=== PATIENT | male | born 1930 | race Caucasian/White ===

== ENCOUNTER 2018-09-12 14:27 | Inpatient (IN) ==
--- NOTE | 2018-09-12 15:06 | Diag Imaging Result Doc PS360 ---
CT HEAD W/O CONTRAST - 09/12/2018 INDICATION: STROKE LIKE SYMPTOMS COMPARISON: None FINDINGS: There is an ill-defined hypodensity in the subinsular white matter of the right basal ganglia. There is mild diffuse cerebral atrophy. No intracranial mass or hemorrhage. No other significant microvascular disease. The skull is intact. The sinuses, mastoids, and middle ears are clear. IMPRESSION: Age-indeterminate ischemia in the right basal ganglia white matter. An MRI of the brain might be beneficial. This exam was performed using automated exposure control, adjustment of mA or kV according to patient size, and/or use of iterative reconstruction technique Electronically signed by Manish Keating 09/12/2018 3:04 PM
--- NOTE | 2018-09-12 15:07 | Diag Imaging Result Doc PS360 ---
CHEST-PORTABLE - 09/12/2018 INDICATION: stroke like symptoms COMPARISON: 03/26/2018 FINDINGS: The lungs are normally expanded and clear. Heart size and mediastinal contours are normal. No pneumothorax or pleural effusion. IMPRESSION: Negative exam. Electronically signed by Manish Keating 09/12/2018 3:05 PM
[2018-09-12 15:30] LABS: URINE SOURCE CATH
[2018-09-12 15:32] LABS: INR 1.02; PROTIME 14.3 Seconds (11.0-16.0)
[2018-09-12 15:37] LABS: PTT 29.9 Seconds (22.3-41.8)
[2018-09-12 15:37] LABS: BILIRUBIN URINE NEGATIVE (NEGATIVE); BLOOD URINE NEGATIVE (NEGATIVE); COLOR YELLOW; GLUCOSE URINE NEGATIVE (NEGATIVE); KETONE URINE NEGATIVE (NEGATIVE); LEUKOCYTES URINE NEGATIVE (NEGATIVE); NITRITE URINE NEGATIVE (NEGATIVE); PROTEIN URINE NEGATIVE (NEGATIVE); SP GRAVITY URINE 1.002; TURBIDITY URINE CLEAR (CLEAR); UROBILINOGEN URINE NORMAL (NORMAL)
[2018-09-12 15:38] LABS: BASO# 0.24 X1000 (0.0-0.2); BASO% 2.5 % (0.0-0.8); EOS# 0.07 X1000 (0.0-0.7); EOS% 0.7 % (0.0-10.0); HEMATOCRIT 39.4 % (42.0-52.0); HEMOGLOBIN 12.9 g/dL (14.0-18.0); IMM GRAN# 0.02 X1000 (0.0-0.04); IMM GRAN% 0.2 % (0.0-0.5); LYMPH% 24.2 % (20.5-51.1); MCH 32.4 PG (27-31); MCHC 32.7 g/dL (33-37); MONO# 0.77 X1000 (0.11-0.59); MONO% 8.1 % (1.7-9.3); MPV 10.5 FL (7.4-10.4); NEUT# 6.09 X1000 (1.4-6.5); NEUT% 64.3 % (42.2-75.2); PLT 306 X1000 (130-400); RBC 3.98 XMIL (4.7-6.1); RDW 15.2 % (11.5-14.5); WBC 9.49 X1000 (4.8-10.8)
[2018-09-12 15:38] LABS: UR EPITHELIAL CELLS <10 /HPF (<10); URINE BACTERIA NEGATIVE /HPF; URINE RBC <10 /HPF (<10); URINE WBC <10 /HPF (<10)
[2018-09-12 15:47] LABS: AGAP 12; ALB/GLOB RATIO 1.7; ALBUMIN 4.7 g/dL (3.5-5.0); ALKALINE PHOSPHATASE 67 U/L (32-122); BUN 14 mg/dL (8-22); CALCIUM 9.3 mg/dL (8.8-10.2); CHLORIDE 100 mmol/L (98-107); COSMO 282; CREATININE 0.6 mg/dL (0.7-1.2); ESTIMATED GFR > 60; GLUCOSE 107 mg/dL (70-104); GOT 18 U/L (10-34); GPT 17 U/L (10-44); POTASSIUM 3.5 mmol/L (3.5-5.1); SODIUM 141 mmol/L (136-145); TCO2 29 mmol/L (25-35); TOTAL BILIRUBIN 0.56 mg/dL (0.20-1.00); TOTAL PROTEIN 7.5 g/dL (6.3-8.3)
--- NOTE | 2018-09-12 15:51 | EKG Report ---
Test Performed on : 09/12/2018 2:38:07 PM Test Reason : Stroke like symptoms Blood Pressure : / mmHG Vent. Rate : 058 BPM Atrial Rate : 058 BPM P-R Int : 160 ms QRS Dur : 136 ms QT Int : 464 ms P-R-T Axes : 053 -33 003 degrees QTc Int : 455 ms Sinus bradycardia. with premature atrial complexes. Left axis deviation Right bundle branch block Abnormal ECG When compared with ECG of 29-JUL-2014 11:13, premature atrial complexes. are now present Right bundle branch block has replaced Incomplete right bundle branch block Unconfirmed Result
[2018-09-12] MEDS ORDERED: ZOFRAN IV ONE (16:58)
[2018-09-12] MEDS ORDERED: MORPHINE IV ONE (16:58)
--- NOTE | 2018-09-12 17:11 | PROVIDER DOCUMENTATION ---
This chart was entered by Dominique Landrum Scribe, acting as scribe for Coy Kaplan MD. HPI-Neurological Disorder - General Chief Complaint: Stroke-Like Symptoms Stated Complaint: DISORIENTED Time Seen by Provider: 09/12/18 14:35 Source: patient, family Unable to obtain history due to:: altered Allergies/Adverse Reactions: Patient Allergies Allergy/AdvReac Type Severity Reaction Status Date / Time Iodinated Contrast- Oral and Allergy Severe SWELLING Verified 03/21/18 10:44 IV Dye Home Medications: Home Medication List Medication Instructions Recorded Confirmed Last Taken Type Acetaminophen [Acetaminophen Extra 500 mg PO DIRECTED 09/12/18 09/12/18 Unknown History Strength] Amlodipine Besylate 1 tab PO DAILY 09/12/18 09/12/18 Unknown History Aspirin 81 mg PO DAILY 09/12/18 09/12/18 Unknown History Atorvastatin Calcium 1 tab PO HS 09/12/18 09/12/18 Unknown History Metoprolol Succinate E.r. [Toprol 1 tab PO DAILY 09/12/18 09/12/18 Unknown History Xl] Ramipril 10 mg PO BID 09/12/18 09/12/18 Unknown History - History of Present Illness-Neuro Nature of Presenting Problem: 87 yowm presents to the ed with his son lincoln. pt since this morning at 1000am had some mild confusion, aphasia. son sts improved later in the day but now has came back worse and pt c/o KINCAID as well. son sts for last 3 days has noted cough and sinus congestion. pt has FSBG 104 and follows commands when given on exam Headache Location: reports: frontal Severity: reports: moderate Onset/Duration: reports: this morning (1000) Timing: reports: still present Context: reports: impaired speech. denies: low blood sugar (BGL 104), facial droop, falling Character of Altered Mental Status: reports: confused, other (aphasia) Any recent trauma/injury?: reports: none Character of Deficits: reports: impaired speech New weakness or altered sensation location:: reports: none Cognitive Baseline: alert, oriented x3 Gait Baseline: walks without assistance Associated Symptoms: reports: headache, confusion, slurred speech (aphasia). denies: short of breath, decreased ability to walk or stand, fainting, dizziness, chest pain, neck/back pain, nausea, paresthesia, trouble walking, vomiting, weakness Similar Symptoms Previously?: No Recently seen or treated by another doctor?: No Review of Systems - Adult - REVIEW OF SYSTEMS - ADULT ROS:: limited per condition (son at bedside and helps with hx) Constitutional: reports: see HPI, weight loss (3 years) Eyes: reports: no symptoms reported Ears, Nose, Mouth & Throat: reports: see HPI, sinus problem Cardiovascular: denies: chest pain, palpitations, syncope Respiratory: reports: see HPI, cough Gastrointestinal: reports: see HPI, poor appetite. denies: diarrhea, nausea, vomiting Genitourinary: reports: no symptoms reported Musculoskeletal: denies: back pain, muscle weakness, neck pain Integumentary: reports: no symptoms reported Neurological: reports: see HPI, headache/migraines, slurred speech, other (aphasia). denies: loss of balance, syncope, tremors Psychiatric: reports: no symptoms reported Endocrine: reports: no symptoms reported Hematologic/Lymphatic: reports: no symptoms reported Allergic/Immunologic: reports: no symptoms reported All Other Systems: Reviewed and Negative Past History - Adult - PAST MEDICAL HISTORY-ADULT Review of Records: reports: Old Records Reviewed Major Childhood Illnesses: reports: denies history Cardiovascular: reports: HTN, other (hx of c stint) Respiratory: reports: denies history Gastrointestinal: reports: denies history Genitourinary: reports: denies history Musculoskeletal: reports: denies history Neurological: reports: denies history Psychiatric: reports: denies history Endocrine/Immune: reports: denies history 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 - PRIOR SURGERIES/PROCEDURES Surgical/Procedure History: reports: reviewed, not pertinent - IMMUNIZATION STATUS Childhood Immunizations: See Nurse Assessment Flu Vaccine: See Nurse Assessment - FAMILY HISTORY Family History: reviewed, not pertinent - SOCIAL HISTORY Smoking: denies Substance Use: denies Living Situation: family Physical Exam- Neurological - Physical Exam-Neuro Initial Vital Signs Reviewed: Yes General Appearance: alert, mild distress, thin Eye Exam: bilateral eye: normal inspection, PERRL, EOMI HENMT: moist mucous membranes, normal ENT inspection Head Injury: no evidence of injury Neck: full range of motion, supple, normal inspection Respiratory: chest non-tender, normal breath sounds Cardiovascular: normal peripheral pulses, bradycardia (54) Abdominal Exam: normal bowel sounds, non tender, soft Lymphatic: no adenopathy Extremity: normal range of motion, normal gait, no pedal edema, no calf tenderness, normal capillary refill subassembly assembler Exam: PERRL, abnormal speech Coordination/Gait: normal finger to nose, normal gait Motor/Sensory: no motor deficit, no sensory deficit, no pronator drift Neurologic: subassembly assembler II-XII nml as tested, no motor/sensory deficits, aphasia Integumentary: normal color, normal turgor, warm/dry - Glascow Coma Scale Best Eye Response: (4) open spontaneously Best Verbal Response: (3) inappropriate words Best Motor Response: (6) obeys commands Total Glascow Score: 13 Progress - PLAN OF CARE/RESULTS Progress/Plan/Lab Results: Vital Signs - 8 hr 09/12/18 14:30 09/12/18 14:40 09/12/18 14:50 Temperature 98.2 F Pulse Rate 54 L Respiratory Rate 20 Blood Pressure 183/76 O2 Sat by Pulse Oximetry 98 97 96 09/12/18 15:14 09/12/18 15:15 09/12/18 15:20 Temperature Pulse Rate Respiratory Rate Blood Pressure 170/75 O2 Sat by Pulse Oximetry 98 97 99 09/12/18 15:30 09/12/18 15:31 09/12/18 15:42 Temperature Pulse Rate Respiratory Rate Blood Pressure 158/79 O2 Sat by Pulse Oximetry 99 89 L 97 09/12/18 15:53 09/12/18 16:00 09/12/18 16:01 Temperature Pulse Rate Respiratory Rate Blood Pressure 154/79 O2 Sat by Pulse Oximetry 93 L 94 L 98 09/12/18 16:12 09/12/18 16:20 09/12/18 16:33 Temperature Pulse Rate Respiratory Rate Blood Pressure O2 Sat by Pulse Oximetry 93 L 95 90 L 09/12/18 16:40 Temperature Pulse Rate Respiratory Rate Blood Pressure O2 Sat by Pulse Oximetry 98 Laboratory Results - last 24 hr 09/12/18 09/12/18 09/12/18 14:36 14:51 14:51 WBC 9.49 RBC 3.98 L Hgb 12.9 L Hct 39.4 L MCV 99.0 MCH 32.4 H MCHC 32.7 L RDW Std Deviation 15.2 H Plt Count 306 MPV 10.5 H Immature Gran % (Auto) 0.2 Neut % (Auto) 64.3 Lymph % (Auto) 24.2 Overton % (Auto) 8.1 Eos % (Auto) 0.7 Baso % (Auto) 2.5 H Immature Gran # (Auto) 0.02 Neut # (Auto) 6.09 Lymph # (Auto) 2.30 Overton # (Auto) 0.77 H Eos # (Auto) 0.07 Baso # (Auto) 0.24 H PT INR PTT (Actin FS) Sodium 141 Potassium 3.5 Chloride 100 Carbon Dioxide 29 Anion Gap 12 BUN 14 Creatinine 0.6 L Estimated GFR/1.73 m2 > 60 BUN/Creatinine Ratio 23 Glucose 107 H POC Glucose 104 Calculated Osmolality 282 Calcium 9.3 Total Bilirubin 0.56 AST 18 ALT 17 Alkaline Phosphatase 67 Troponin T Total Protein 7.5 Albumin 4.7 Globulin 2.8 Albumin/Globulin Ratio 1.7 Urine Source Urine Color Urine Turbidity Urine pH Ur Specific Mcc[place] Urine Protein Ur Glucose (Stick) Ur Ketones (Stick) Urine Blood Urine Nitrite Urine Bilirubin Urobilinogen Dipstick Urine Leukocytes Urine WBC (Auto) Urine RBC (Auto) U Epithel Cells (Auto) Urine Bacteria (Auto) 09/12/18 09/12/18 09/12/18 14:51 14:51 15:19 WBC RBC Hgb Hct MCV MCH MCHC RDW Std Deviation Plt Count MPV Immature Gran % (Auto) Neut % (Auto) Lymph % (Auto) Overton % (Auto) Eos % (Auto) Baso % (Auto) Immature Gran # (Auto) Neut # (Auto) Lymph # (Auto) Overton # (Auto) Eos # (Auto) Baso # (Auto) PT 14.3 INR 1.02 PTT (Actin FS) 29.9 Sodium Potassium Chloride Carbon Dioxide Anion Gap BUN Creatinine Estimated GFR/1.73 m2 BUN/Creatinine Ratio Glucose POC Glucose Calculated Osmolality Calcium Total Bilirubin AST ALT Alkaline Phosphatase Troponin T < 0.010 Total Protein Albumin Globulin Albumin/Globulin Ratio Urine Source CATH Urine Color YELLOW Urine Turbidity CLEAR Urine pH 7.0 Ur Specific [place] 1.002 Urine Protein NEGATIVE Ur Glucose (Stick) NEGATIVE Ur Ketones (Stick) NEGATIVE Urine Blood NEGATIVE Urine Nitrite NEGATIVE Urine Bilirubin NEGATIVE Urobilinogen Dipstick NORMAL Urine Leukocytes NEGATIVE Urine WBC (Auto) <10 Urine RBC (Auto) <10 U Epithel Cells (Auto) <10 Urine Bacteria (Auto) NEGATIVE Orders Category Date Time Status Admit - [facility] Routine AdmDCTranf 09/12/18 16:56 Active Cardiac Monitoring DIRECTED Care 09/12/18 14:38 Active Finger Stick Blood Sugar (ED) DIRECTED Care 09/12/18 14:38 Active Misc. NRSG Communication Order DIRECTED Care 09/12/18 14:38 Active Oxygen Therapy- ED Nursing DIRECTED Care 09/12/18 14:38 Active Saline Loc NOW Care 09/12/18 14:38 Active CHEST-PORTABLE [RAD] Stat Exams 09/12/18 14:[address] HEAD W/O CONTRAST [CT] Stat Exams 09/12/18 14:37 Completed CBC WITH ELECTRONIC DIFF [HEME] Stat Lab 09/12/18 14:51 Completed COMPREHENSIVE METABOLIC PANEL [CHEM] Stat Lab 09/12/18 14:51 Completed PROTIME WITH INR [COAG] Stat Lab 09/12/18 14:51 Completed PTT [COAG] Stat Lab 09/12/18 14:51 Completed TROPONIN T Stat Lab 09/12/18 14:51 Completed URINALYSIS W/POSS RFLX CULT [URINALYSIS] Stat Lab 09/12/18 15:19 Completed Morphine Med 09/12/18 16:58 Discontinued 2 mg IV NOW ONE Ondansetron [Zofran] Med 09/12/18 16:58 Discontinued 4 mg IV NOW ONE EKG [EKG] Stat Ther 09/12/18 14:38 Draft pt is out of TPA window due to time of onset 1000am this morning Result Diagrams: 09/12/18 14:51 09/12/18 14:51 - REASSESSMENT Reassessment #1 Time Reassessed: 15:14 (pt swallowed water and is resting in bed ) Status: unchanged Reassessment #2 Time Reassessed: 16:39 (pt speech has improved) Status: improving - EKG 1 Time of EKG reading by physician:: 14:38 EKG Read and Signed by:: Coy Kaplan EKG Interpretation (*Must complete 3 of following elements*): Abnormal Rate: 58 Rhythm: sinus bradycardia with pac [place]: left (deviation) QRS: RBB AL Interval: normal ST Wave: normal - XRAY 1 XRAY: Bilateral XRAY Study: Chest Impression: See EMR Report (CHEST-PORTABLE - 09/12/2018 INDICATION: stroke like symptoms COMPARISON: 03/26/2018 FINDINGS: The lungs are normally expanded and clear. Heart size and mediastinal contours are normal. No pneumothorax or pleural effusion. IMPRESSION: Negative exam. Electronically signed by Manish Keating 09/12/2018 3:05 PM 09/12/18 1505 Interpreting Physician: Manish Gordon MD Dictated Date/Time: 09/12/18 1504 cc: Coy Kaplan MD; Jefry Sofia MD) - CT/MRI 1 CT Study: Head Impression: See EMR Report (CT HEAD W/O CONTRAST - 09/12/2018 INDICATION: STROKE LIKE SYMPTOMS COMPARISON: None FINDINGS: There is an ill-defined hypodensity in the subinsular white matter of the right basal ganglia. There is mild diffuse cerebral atrophy. No intracranial mass or hemorrhage. No other significant microvascular disease. The skull is intact. The sinuses, mastoids, and middle ears are clear. IMPRESSION: Age-indeterminate ischemia in the right basal ganglia white matter. An MRI of the brain might be beneficial. This exam was performed using automated exposure control, adjustment of mA or kV according to patient size, and/or use of iterative reconstruction technique Electronically signed by Manish Keating 09/12/2018 3:04 PM 09/12/18 1504 Interpreting Physician: Manish Keating MD Dictated Date/Time: 09/12/18 1503 cc: Coy Kaplan MD; Jefry Sofia MD) - CONSULTS/PCP/HOSPITALIST Notification #1 *Consult/PCP/Hospitalist*: transfer center Time Discussed: 15:56 Reason/Comments: phone consult #2 Consult: dr gou neuro Time Discussed: 16:38 (sx are improving and wants pt admitted to local hosp italist and watched) Reason/Comments: No TPA phone consult #3 Consult: hospitalist Consult Disposition: Admit Departure - Departure Date of Disposition Decision: 09/12/18 Time of Disposition Decision: 16:59 DIAGNOSIS: CVA (cerebral vascular accident) Qualifiers: CVA mechanism: unspecified Qualified Code(s): I63.9 - Cerebral infarction, unspecified Disposition: ADMITTED INPATIENT 09 Certified Medical Emergency: Emergent Condition: Serious Referrals and Follow-Ups: Jefry Sofia MD [Primary Care Provider] - - Critical Care Note This patient required my direct & personal management of CC.: Yes Total Time (mins): 38 Critical Care Statement: This patient required my direct personal management to treat or rule out processes, the absence of which, could potentiallly result in sudden, clinically significant life or limb threatening deterioration. Attestation - Physician/ NEMO Attestation Patient care was provided by Advanced Practice Provider:: No The physician spent face to face time with patient:: Yes Advanced Practice Provider documentation review:: Supervising physician onsite and consulted in the evaluation and care of this patient. The physician did have a face to face encounter with the patient. - NIH Stroke Scale NIH Type: Initial Evaluation Level of Consciousness: 0-Alert LOC Questions (ask month and age): 2-Both Incorrect LOC Commands (ask to open & close eyes;make a fist, let go): 0-Obeys Both Correctly Best Gaze (horizontal eye movement): 0-Normal Visual (use finger movement, counting or visual threat): 0-No Visual Loss Facial Palsy (show teeth or raise eyebrows & close eyes tght: 0-Symmetrical Movement Motor Function-left arm: 0-Normal Motor Function-right arm: 0-Normal Motor Function-left le-Normal Motor Function-right le-Normal Limb Ataxia([id number], or heel to churchill): 0-No Ataxia Sensory(pin prick to face,arms,trunk,legs-compare side/side): 0-No Ataxia Best Language(name item/read sentence.Ex-Down to Earth): 2-Severe Aphasia Dysarthria(Pt read words or say words Ex.Mama,Tip-Top,Thanks: 1-Mild-Mod Slurring Words Extinction and Inattention: 0-Normal NIH Total Score: 5 (pt not a TPA canidate due to time of onset) This chart was documented by the indicated scribe, (Dominique Landrum Scribe) and accurately reflects the services I performed and decisions made by me, Coy Kaplan MD, as attested by the provider's signature.
[2018-09-12] MEDS ORDERED: NS 1,000 ML IV SCH (17:30)
--- NOTE | 2018-09-12 18:44 | HISTORY AND PHYSICAL ---
PRIMARY CARE PHYSICIAN: Dr. Jefry Sofia. CHIEF COMPLAINT: Altered mentation. HISTORY OF PRESENT ILLNESS: Mr. Hollingsworth is an 87-year-old male with a history of macular degeneration, hypertension, hyperlipidemia, who presents with acute onset of expressive aphasia which began this morning at around 10:00. He actually reports that he had some double vision a day or two ago and has been having more weakness over the past month. This morning at around 10:00 he started noticing that the words he was trying to say could not come out correctly. His family noticed that he was confused. He denied any unilateral weakness but he started complaining of a headache and that is when his son brought him here to the ER. In the ER, head CT was done which did show age indeterminate ischemia in the right basal ganglia white matter; there is mild diffuse cerebral atrophy as well but nothing acute. Laboratory data done unremarkable. Chest x-ray was negative. EKG showed sinus bradycardia with PACs, right bundle branch block, did not show anything acute. As such, we are going to admit him for stroke. PAST MEDICAL HISTORY: 1. Hypertension. 2. Hyperlipidemia. 3. Macular degeneration. 4. Advanced age. 5. GERD. 6. Coronary artery disease. 7. Nicotine dependence. SURGICAL HISTORY: He has had a left hip fracture repair, hernia repair, coronary stent. SOCIAL HISTORY: He is and lives with his son. He chews heavy amounts of tobacco daily. No alcohol or drugs. FAMILY HISTORY: Unremarkable. HOME MEDICATIONS: Aspirin 81 mg daily, atorvastatin 20 mg at bedtime, ramipril 10 mg b.i.d., metoprolol XL 100 mg p.o. daily, acetaminophen 500 mg as needed. ALLERGIES: Oral and IVP dye. REVIEW OF SYSTEMS: A 14-point review of systems was obtained and found to be negative with the exception of the HPI. PHYSICAL EXAMINATION: VITAL SIGNS: Blood pressure 157/79; heart rate 54; respiratory rate 20; O2 saturation 98% on room air. GENERAL: Elderly male lying in the hospital bed in no acute distress. NEUROLOGICAL: He is awake and alert. He has expressive aphasia but answers most orientation questions correctly. He is able to follow commands without focal deficits. He does have what appears to be expressive aphasia. HEENT: Head is atraumatic and normocephalic. Pupils are equal, round and reactive to light. Oral mucosa is dry. NECK: Trachea is midline. He does have right mandibular tenderness to palpation with some redness along the gum line on the right side of the mandible. There are no carotid bruits or JVD. CHEST: Diminished but clear bilaterally. CARDIOVASCULAR: Regular rate and rhythm. S1 and S2 are noted. 3-4/6 systolic ejection murmur noted. GASTROINTESTINAL: Soft, nontender and nondistended. Bowel sounds positive. EXTREMITIES: No edema. Pulses are 1+ bilaterally. DIAGNOSTIC DATA: Head CT shows chronic changes; possible right basal ganglia ischemia; MRI is recommended. Chest x-ray is negative. EKG shows sinus rhythm; right bundle branch block; nonspecific changes. WBC 9.49, hemoglobin 12.9, hematocrit 39.4, platelet count 306,000. INR 1.02. Chemistries unremarkable. UA is negative. ASSESSMENT AND PLAN: 1. Suspected stroke: MRI is not available until Saturday, however unlikely to change therapy. Will make sure he is on aspirin, statin, and allow for permissive hypertension in the first 24 hours. Will check an echo and carotids. Do neuro checks per protocol. Consult Physical Therapy, Speech Therapy, and Social Work. 2. Suspected tooth abscess: Will start the patient on augmentin. 3. Hypertension: Allowing for permissive hypertension. Will hold on any antihypertensives for now. Only treat if greater than 210/110. 4. Macular degeneration: Aware. 5. Coronary artery disease: The patient denies chest pain. Continue aspirin and statin. Check echo. 6. Deep venous thrombosis prophylaxis with Lovenox. Further recommendations to follow. Dictated by YOUNG Henning for Rosi Zayas MD cc: YOUNG Henning MD I performed a face to face encounter on the patient. I reviewed all labs and imaging on the patient. I agree with the H&P as dictated. was brought to the ER after experiencing aphasia and confusion at home today. A head CT was done that was unremarkable. On exam, the patient is alert and oriented x3 but has expressive aphasia. Will admit the patient to the medical floor on telemetry and order a carotid doppler study and echocardiogram. Will plan to do an MRI of the brain on Saturday. Will increase his aspirin dosage to 325mg daily and check his lipid profile. [facility]
[2018-09-12] MEDS: LIPITOR PO SCH (20:52)
[2018-09-12] MEDS: TYLENOL PO PRN (20:52)
[2018-09-12] MEDS: AUGMENTIN PO SCH (20:52)
[2018-09-13] MEDS: TYLENOL PO PRN (04:44)
[2018-09-13 07:13] LABS: HEMATOCRIT 38.3 % (42.0-52.0); HEMOGLOBIN 12.4 g/dL (14.0-18.0); MCH 32.9 PG (27-31); MCHC 32.4 g/dL (33-37); MCV 101.6 FL (81-99); MPV 10.3 FL (7.4-10.4); RBC 3.77 XMIL (4.7-6.1); RDW 15.3 % (11.5-14.5); WBC 8.32 X1000 (4.8-10.8)
[2018-09-13 07:37] LABS: AGAP 12; BUN 10 mg/dL (8-22); CALCIUM 9.1 mg/dL (8.8-10.2); CHLORIDE 102 mmol/L (98-107); COSMO 285; CREATININE 0.6 mg/dL (0.7-1.2); ESTIMATED GFR > 60; GLUCOSE 108 mg/dL (70-104); MAGNESIUM 1.9 mg/dL (1.5-2.7); POTASSIUM 3.4 mmol/L (3.5-5.1); SODIUM 143 mmol/L (136-145); TCO2 29 mmol/L (25-35)
[2018-09-13] MEDS ORDERED: KLOR-CON PO ONE (08:04)
[2018-09-13] MEDS ORDERED: ASPIRIN PO SCH (09:00)
[2018-09-13] MEDS: AUGMENTIN PO SCH ×2 (10:06→21:55)
[2018-09-13] MEDS: CULTURELLE PO SCH (10:06)
[2018-09-13] MEDS: PERCOCET-5 PO PRN ×3 (11:38→21:55)
--- NOTE | 2018-09-13 11:39 | ECHO REPORT ---
ORDER DATE: 09/12/2018 ECHOCARDIOGRAPHIC MEASUREMENTS: 1. Interventricular septum 1.0. 2. Left ventricular posterior wall 0.9. 3. Diastolic diameter 4.5. 4. Left atrium 3. 5. Aorta 3.6. SUMMARY OF THE 2-DIMENSIONAL IMAGIN. Pulmonic valve was normal. There is moderate pulmonary regurgitation. 2. Aortic valve leaflets are trileaflet. 3. Tricuspid valve was normal. 4. Mitral valve leaflets revealed mild prolapse of the tip of the anterior mitral leaflet. 5. There is moderate tricuspid regurgitation. Peak velocity across the tricuspid valve was 4 m/sec. Pulmonary artery systolic pressure of 74 mmHg. There is pulmonary arterial hypertension. 6. There is mild to moderate mitral regurgitation. 7. Peak velocity across the aortic valve less than 2 m/sec by Doppler studies. There is no aortic stenosis or regurgitation. 8. Normal left ventricular cavity size. Estimated ejection fraction of 55 to 60 percent. 9. There is no pericardial effusion or obvious intracardiac mass or thrombus seen. 10. Diastolic dysfunction noted. cc: MD Kwabena Blackmon CRNP
--- NOTE | 2018-09-13 20:26 | PROGRESS NOTE ---
DATE: 09/13/2018 SUBJECTIVE: The patient is awake and alert. He has no speech deficits and states that he feels like he is back to normal. OBJECTIVE: Vital Signs: Temperature 97.6, blood pressure 129/97, heart rate 104, respirations 20, O2 saturation 95% on room air. General: This is a chronically ill-appearing, elderly male, sitting in bed in no acute distress. Heart: S1, S2 normal. Regular rate and rhythm. Lungs: Clear to auscultation bilaterally. Abdomen: Positive bowel sounds. Soft, nontender, nondistended. Extremities: No edema. No cyanosis. Neurologic: The patient is alert and oriented x4. LABS: White blood cell count 8.3, hemoglobin 12, hematocrit 38, platelets 277. Sodium 143, potassium 3.4, BUN 10, creatinine 0.6, glucose 108. Echocardiogram shows moderate mitral regurgitation, moderate pulmonary regurgitation. ASSESSMENT AND PLAN: 1. Suspected transient ischemic attack. The carotid duplex study is currently pending. The patient is scheduled to undergo an MRI of the brain on Saturday. We will continue with aspirin and Lipitor plus physical therapy. 2. Dental abscess. The patient is on Augmentin. He is scheduled to follow up with his oral surgeon upon discharge from the hospital. 3. Hypokalemia. Will replace the patient's potassium. 4. Hypertension. Stable. 5. Deep vein thrombosis prophylaxis. Will start the patient on Lovenox. cc: Rosi Zayas MD
[2018-09-13] MEDS: LIPITOR PO SCH (21:55)
[2018-09-13] MEDS: LOVENOX SUBQ SCH (21:56)
[2018-09-14] MEDS: PERCOCET-5 PO PRN ×2 (03:10→08:10)
[2018-09-14 07:13] LABS: HEMATOCRIT 37.7 % (42.0-52.0); HEMOGLOBIN 11.8 g/dL (14.0-18.0); MCH 32.1 PG (27-31); MCHC 31.3 g/dL (33-37); MCV 102.4 FL (81-99); MPV 10.6 FL (7.4-10.4); RBC 3.68 XMIL (4.7-6.1); RDW 15.2 % (11.5-14.5); WBC 6.3 X1000 (4.8-10.8)
[2018-09-14 07:37] LABS: AGAP 9; BUN 17 mg/dL (8-22); CALCIUM 8.8 mg/dL (8.8-10.2); CHLORIDE 105 mmol/L (98-107); COSMO 285; CREATININE 0.7 mg/dL (0.7-1.2); ESTIMATED GFR > 60; GLUCOSE 104 mg/dL (70-104); POTASSIUM 3.8 mmol/L (3.5-5.1); SODIUM 142 mmol/L (136-145); TCO2 28 mmol/L (25-35)
[2018-09-14] MEDS: AUGMENTIN PO SCH ×2 (08:09→20:24)
[2018-09-14] MEDS: CULTURELLE PO SCH (08:10)
[2018-09-14] MEDS: PERCOCET-10 PO PRN ×3 (12:10→20:24)
--- NOTE | 2018-09-14 17:00 | PROGRESS NOTE ---
DATE: 09/14/2018 SUBJECTIVE: The patient complains of pain along his right jaw where he has a tooth abscess. Otherwise, he has no other complaints. OBJECTIVE: Vital Signs: Temperature 98.1, blood pressure 124/75, heart rate 81, respirations 22. O2 sats 100% on room air. General: This is a chronically ill-appearing elderly male sitting in bed in no acute distress. Heart: S1, S2 normal. Lungs: Clear to auscultation bilaterally. Abdomen: Positive bowel sounds. Soft, nontender, nondistended. Extremities: No edema. No cyanosis. Neurologic: The patient is alert and oriented x 3. LABS: White blood cell count 6.3, hemoglobin 11, hematocrit 37, platelets 252,000. Sodium 142, potassium 3.8, chloride 105, CO2 28, BUN 17, creatinine 0.7. ASSESSMENT AND PLAN: 1. TIA. The patient is back to baseline. Continue on aspirin and Lipitor. The patient is scheduled for an MRI tomorrow. 2. Dental abscess. The patient has been advised to follow up with a on an oral surgeon for tooth extraction as outpatient. Continue on Augmentin. 3. Hypertension. Stable. 4. DVT prophylaxis. Continue on Lovenox. 5. Disposition. The patient will likely be discharged home tomorrow after he undergoes his MRI. cc: Rosi Zayas MD
[2018-09-14] MEDS: LOVENOX SUBQ SCH (20:24)
[2018-09-14] MEDS: LIPITOR PO SCH (20:24)
[2018-09-15] MEDS: PERCOCET-10 PO PRN ×3 (01:16→08:30)
[2018-09-15 06:39] LABS: HEMATOCRIT 38.5 % (42.0-52.0); HEMOGLOBIN 12.2 g/dL (14.0-18.0); MCH 32.6 PG (27-31); MCHC 31.7 g/dL (33-37); MCV 102.9 FL (81-99); MPV 10.2 FL (7.4-10.4); RBC 3.74 XMIL (4.7-6.1); WBC 6.3 X1000 (4.8-10.8)
[2018-09-15 07:04] LABS: AGAP 4; BUN 16 mg/dL (8-22); CALCIUM 9.4 mg/dL (8.8-10.2); CHLORIDE 101 mmol/L (98-107); COSMO 283; CREATININE 0.6 mg/dL (0.7-1.2); ESTIMATED GFR > 60; GLUCOSE 101 mg/dL (70-104); MAGNESIUM 2.1 mg/dL (1.5-2.7); SODIUM 141 mmol/L (136-145); TCO2 36 mmol/L (25-35)
[2018-09-15] MEDS ORDERED: ATIVAN PO ONE (08:16)
[2018-09-15] MEDS: CULTURELLE PO SCH (08:30)
[2018-09-15] MEDS: AUGMENTIN PO SCH (08:31)
[2018-09-15] MEDS ORDERED: ASPIRIN EC PO ONE (08:44)
--- NOTE | 2018-09-15 10:26 | Diag Imaging Result Doc PS360 ---
EXAM: MRI BRAIN W/O CONTRAST 09/15/2018 HISTORY: stroke TECHNIQUE: T1 sagittal, axial and axial T2, FLAIR, DWI. Coronal gradient echo. COMMENT: There is some increased T2-weighted signal intensity present in the snow and lower midbrain with small punctate areas of increased T2-weighted signal in the cerebellar peduncles and basal ganglia. Some of the latter may represent dilated perivascular spaces. Similar appearing areas of T2 hyperintensity are present in the subcortical and periventricular white matter with less well-defined patchy areas near the atria of the lateral ventricles. There is no evidence of restricted diffusion. There are no previous MRI studies. IMPRESSION: No evidence of acute intracranial disease. Chronic microvascular changes as described above. Electronically signed by Evan Fleming 09/15/2018 10:24 AM
[2018-09-15] MEDS ORDERED: ASPIRIN ONE (11:11)
[2018-09-15 11:24] VITALS: BP 131/69
--- NOTE | 2018-09-17 12:04 | Carotid Study ---
DATE: 09/12/2018 PROCEDURE: Bilateral duplex and color flow imaging of the carotid arteries performed using the [employer] Vivid E9 Ultrasound System with a 9L-D transducer. REFERRING PHYSICIAN: Eusebio. An 87-year-old male. INTERPRETING PHYSICIAN: Trudi Landrum MD. [place] [facility] [place]ICATIONS: Transient ischemic attack. OBSERVED DATA RIGHT LEFT Brachial Blood Pressure Carotid Pulse Bruits: Carotid/Sub DIAGRAM OF ULTRASOUND IMAGING R L RIGHT INT EXT INT EXT LEFT Jorge Luis (cm/s) Jorge Luis (cm/s) Subclavian 53/0 Subclavian 55/0 CCA Proximal 96/21 CCA Proximal 144/11 CCA Distal 98/12 CCA Distal 104/15 Bulb 80/12 Bulb 85/17 ICA Proximal 144/43 ICA Proximal 64/24 ICA Mid 96/29 ICA Mid 95/26 ICA Distal 161/56 ICA Distal 129/33 ECA 64/7 ECA 46/3 Vertebral Forward flow 61/18 Vertebral Forward flow 78/20 ICA/CCA Ratio 1.64 ICA/CCA Ratio 0.89 % Stenosis 40-59% % Stenosis 40-59% PHYSICIAN INTERPRETATION: [id number] atherosclerotic disease of the distal common and internal carotid arteries bilaterally without evidence of a hemodynamically significant lesion in either carotid system. cc: MD Kwabena Jane CRNP
--- NOTE | 2018-09-20 19:23 | DISCHARGE SUMMARY ---
ADMISSION DATE: 09/12/2018 DISCHARGE DATE: 09/15/2018 FINAL DISCHARGE DIAGNOSES: 1. Transient ischemic attack. 2. Dental abscess. 3. Hypertension. 4. Anemia. IMAGIN. Head CT performed on 09/12/2018 that revealed age-indeterminate ischemia in the right basal ganglia white matter. 2. Carotid Doppler study performed on 09/12/2018 that revealed mild to moderate atherosclerotic disease of the distal common and internal carotid arteries bilaterally without significance of a hemodynamically-significant lesion. 3. Brain MRI performed on 09/18/2018 that revealed no evidence of acute intracranial disease. Chronic microvascular changes present. 4. Echocardiogram which revealed an ejection fraction of 55% to 60%. Diastolic dysfunction noted. HOSPITAL COURSE: Mr. Hollingsworth is an 87-year-old male with a history of hypertension, coronary artery disease, and tobacco dependence who presented to the ER with altered mental status. On admission the patient was aphasic and complaining of double vision. The patient was admitted to the hospitalist service. A head CT was done that did not show any acute finding. The patient underwent a brain MRI which revealed no acute abnormality. He also underwent a carotid duplex study and an echocardiogram that were unremarkable. The patient's mental status and neuro status normalized within 24 hours. The patient is on low-dose aspirin as outpatient. His aspirin was increased to a full dose and he was advised to continue on statin therapy. The patient was noted to have a dental abscess and he was advised to make an appointment with an oral surgeon to have that taken care of. The patient was treated with Augmentin during the hospital stay. The patient was seen by Physical Therapy and did well with ambulation. The patient was ultimately cleared for discharge home on 09/15/2018. DISCHARGE MEDICATIONS: 1. Augmentin 875 one tab oral twice a day. 2. Lactobacillus 1 tab oral daily. 3. Percocet 10/325 one tab oral every 4 hours p.r.n. 4. Aspirin 325 mg oral daily. 5. Norvasc 10 mg p.o. daily. 6. Lipitor 20 mg p.o. at bedtime. 7. Toprol-XL 1 tab oral daily. 8. Ramipril 10 mg p.o. twice a day. DISCHARGE DIET: Low-sodium low-cholesterol diet. ACTIVITY: As tolerated. FOLLOW-UP INSTRUCTIONS: 1. The patient will need to follow up with an oral surgeon as soon as possible to have his dental abscess addressed. 2. The patient will need to follow up with his primary care physician in 1 week. cc: Rosi Zayas MD
== END 2018-09-15 11:55 | disposition home or self-care (01) | DRG 69 ==
LOC: ED 14:27 → 4N 19:31
PROVIDERS: ATTEND Internal Medicine
CPT/HCPCS: 70450; 70551; 71010; 71045; 80048; 80053; 80061; 81001; 82948; 83721; 83735; 84484; 85025; 85027; 85610; 85730; 93005; 93306; 93880; 96361; 96374; 96375; 97161; 99285; 99291; A9270; J1650; J2270; J2405; J7030; XXXXX